=== PATIENT | female | born 1995 | race Caucasian/White ===

== ENCOUNTER → 2020-09-29 | Outpatient (CLI) | payer OTHER ==
[~2020-09-29] MED LIST: FERSU300; IBUP800 PO; OXYC5 PO; PRENATAL TABLE1 EAC2
[2020-10-03 15:10] LABS: HPV 16 Negative (Negative); HPV 18 Negative (Negative); HPV OTHER HR TYPES Negative (Negative)
== END | disposition home or self-care (01) ==
LOC: LAB 14:07 → LAB SHORT 14:07
PROVIDERS: Obstetrics & Gynecology
DX: Z01.419 Encounter for gynecological examination (general) (routine) without abnormal findings (principal)
CPT/HCPCS: 87624; G0123

== ENCOUNTER 2021-04-11 14:45 | Inpatient (IN) | payer BC ==
[~2021-04-11] VITALS: Ht 165.1 cm; Wt 70.0 kg
[2021-04-11] MEDS ORDERED: PRENATAL TABLE1 EAC2 (15:24)
[2021-04-11] MEDS ORDERED: FERSU300 (15:25)
[2021-04-11 15:26] LABS: BASOPHILS ABSOLUTE AUTO 0.01 K/mm3 (0.00-0.23); BASOPHILS PERCENT AUTO 0 % (0-2); EOSINOPHILS ABSOLUTE AUTO 0.09 K/mm3 (0.00-0.68); EOSINOPHILS PERCENT AUTO 1 % (0-6); Hematocrit 32.8 % (33.0-51.0); Hemoglobin 10.6 g/dL (11.5-16.0); IMMATURE GRAN ABSOLUTE AUTO 0.02 K/mm3 (0.00-0.10); IMMATURE GRAN PERCENT AUTO 0 % (0-1); LYMPHOCYTES ABSOLUTE AUTO 1.56 K/mm3 (0.84-5.20); LYMPHOCYTES PERCENT AUTO 19 % (21-46); MONOCYTES ABSOLUTE AUTO 0.77 K/mm3 (0.16-1.47); MONOCYTES PERCENT AUTO 9 % (4-13); Mean Corpuscular HGB 25.3 pg (26.0-34.0); Mean Corpuscular HGB Conc 32.3 g/dL (31.5-36.5); Mean Corpuscular Volume 78 fL (80-100); Mean Platelet Volume 11.1 fL (9.1-12.4); NEUTROPHILS ABSOLUTE AUTO 5.89 K/mm3 (1.96-9.15); NEUTROPHILS PERCENT AUTO 71 % (41-73); Platelet Count 313 K/mm3 (150-400); RDW Coefficient Variation 13.9 % (11.7-14.2); RDW Standard Deviation 39.1 fL (35.1-46.3); Red Blood Cell Count 4.19 M/mm3 (3.80-5.20); White Blood Cell Count 8.34 K/mm3 (4.00-11.30)
--- NOTE | 2021-04-12 15:29 | NUR ---
04/12/21 1529 Monica Muir 1507 PT ARRIVE TO [facility] OR WITH MARSH CATHETER INTACT DRAINIG CLEAR YELLOW URINE
--- NOTE | 2021-04-12 18:00 | NUR ---
JEFFREY POS WELL. PAIN RX GIVEN. BF NB. BONDING WELL.
--- NOTE | 2021-04-12 18:43 | NUR ---
PT DECLINES FUNDAL CHECK AT THIS TIME. R/T PAIN. PAIN RX GIVEN. HEAT PAD GIVEN. VS AND BLEEDING WNL. PT JEFFREY CRACKERS, JUICE, AND WATER WELL. VISITING WITH FAMILY ONLINE.
[2021-04-13 05:32] LABS: Hematocrit 30.9 % (33.0-51.0); Hemoglobin 9.9 g/dL (11.5-16.0); Mean Corpuscular HGB 25.2 pg (26.0-34.0); Mean Corpuscular Volume 79 fL (80-100); Mean Platelet Volume 10.5 fL (9.1-12.4); Platelet Count 274 K/mm3 (150-400); RDW Standard Deviation 39.8 fL (35.1-46.3); Red Blood Cell Count 3.93 M/mm3 (3.80-5.20); White Blood Cell Count 13.48 K/mm3 (4.00-11.30)
[2021-04-14] MEDS ORDERED: IBUP800 PO (11:52)
[2021-04-14] MEDS ORDERED: OXYC5 PO (11:53)
--- NOTE | 2021-04-14 12:45 | NUR ---
PT'S VITAL SIGNS STABLE THIS MORNING. NO FEVER PRESENT. DISCHARGE TEACHING, WRITTEN AND VERBAL, GIVEN TO PT AND , HANNAH. ANSWERED ALL QUESTIONS AND CONCERNS. FOLLOW UP APPOINTMENT SCHEDULED. IV DISCONTINUED. ALL PERSONAL BELONGINGS RETURNED. PRESCRIPTIONS GIVEN TO PT'S TO GET FILLED. PT IS READY FOR DISCHARGE.
== END 2021-04-14 15:10 | disposition home or self-care (01) | DRG 787 ==
LOC: BC 14:45 → OBS 14:45 → BC 14:58
PROVIDERS: ADMIT Obstetrics & Gynecology
PROC: 10D00Z1 Extraction of Products of Conception, Low, Open Approach (ICD-10-PCS; principal; 2021-04-12 15:00)
DX: O76 Abnormality in fetal heart rate and rhythm complicating labor and delivery (principal); Q79.61 Classical Ehlers-Danlos syndrome; O36.5930 Maternal care for other known or suspected poor fetal growth, third trimester, not applicable or unspecified; Z3A.40 40 weeks gestation of pregnancy; Z37.0 Single live birth; O99.891 Other specified diseases and conditions complicating pregnancy; Z86.16 Personal history of COVID-19; O64.8XX0 Obstructed labor due to other malposition and malpresentation, not applicable or unspecified
CPT/HCPCS: 36415; 51702; 85025; 85027; 86850; 86900; 86901; A9270; C9113; J0456; J0690; J1100; J1200; J1885; J2001; J2370; J2405; J2590; J2765; J3010; J7050; J7120

== ENCOUNTER → 2022-07-11 | Outpatient (CLI) | payer BC ==
[~2022-07-11] MED LIST changes: +BUSP5 PO; +LOPE2C PO; +ONDA4 PO
[2022-07-11 12:52] LABS: Source, Urine Clean Catch
[2022-07-11 14:00] LABS: Bacteria Many /hpf; Mucus Heavy (0-Heavy); Red Blood Cells, Urine 0-2 /hpf (0-2); Squamous Epithelial Cells Many /hpf (Few)
[2022-07-11 14:01] LABS: Amorphous Light (0-Heavy)
== END | disposition home or self-care (01) ==
LOC: LAB SHORT 09:36 → LAB 09:36
PROVIDERS: Obstetrics & Gynecology
DX: Z34.81 Encounter for supervision of other normal pregnancy, first trimester (principal)
CPT/HCPCS: 81015; 87086

== ENCOUNTER → 2022-08-01 | Outpatient (CLI) | payer BC ==
[2022-08-03 01:10] LABS: CHLAMYDIA TRACHOMATIS, NAA Negative (Negative)
== END ==
LOC: LAB 14:25 → LAB SHORT 14:25
PROVIDERS: Obstetrics & Gynecology
DX: Z11.3 Encounter for screening for infections with a predominantly sexual mode of transmission (principal)
CPT/HCPCS: 87491; 87591

== ENCOUNTER 2022-08-21 18:46 | Emergency (ER) | payer BC ==
[~2022-08-21] VITALS: Ht 165.1 cm; Wt 59.0 kg
[2022-08-21 19:35] LABS: BASOPHILS ABSOLUTE AUTO 0.02 K/mm3 (0.00-0.23); BASOPHILS PERCENT AUTO 0 % (0-2); EOSINOPHILS ABSOLUTE AUTO 0.08 K/mm3 (0.00-0.68); EOSINOPHILS PERCENT AUTO 1 % (0-6); Hematocrit 35.9 % (33.0-51.0); Hemoglobin 12.4 g/dL (11.5-16.0); IMMATURE GRAN ABSOLUTE AUTO 0.03 K/mm3 (0.00-0.10); IMMATURE GRAN PERCENT AUTO 0 % (0-1); LYMPHOCYTES ABSOLUTE AUTO 1.81 K/mm3 (0.84-5.20); LYMPHOCYTES PERCENT AUTO 21 % (21-46); MONOCYTES ABSOLUTE AUTO 0.51 K/mm3 (0.16-1.47); MONOCYTES PERCENT AUTO 6 % (4-13); Mean Corpuscular HGB 28.5 pg (26.0-34.0); Mean Corpuscular HGB Conc 34.5 g/dL (31.5-36.5); Mean Corpuscular Volume 83 fL (80-100); Mean Platelet Volume 9.1 fL (9.1-12.4); NEUTROPHILS ABSOLUTE AUTO 6.38 K/mm3 (1.96-9.15); NEUTROPHILS PERCENT AUTO 72 % (41-73); Platelet Count 303 K/mm3 (150-400); RDW Coefficient Variation 13.3 % (11.7-14.2); RDW Standard Deviation 40.2 fL (35.1-46.3); Red Blood Cell Count 4.35 M/mm3 (3.80-5.20); White Blood Cell Count 8.83 K/mm3 (4.00-11.30)
[2022-08-21 19:58] LABS: Albumin, Blood 3.2 g/dL (3.4-5.0); Albumin/Globulin Ratio 0.9 (0.8-1.8); Bilirubin, Total 0.2 mg/dL (0.1-1.0); Bun/Creatinine Ratio 15.7 (12.0-20.0); Calcium, Blood 8.7 mg/dL (8.5-10.1); Creatinine, Blood 0.45 mg/dL (0.40-1.00); Globulin, Blood 3.6 g/dL (2.2-4.0); Potassium, Blood 3.6 mmol/L (3.5-5.5); Total Protein, Blood 6.8 g/dL (6.4-8.2)
== END 2022-08-21 21:37 | disposition home or self-care (01) ==
LOC: ER 18:46
PROVIDERS: Emergency Medicine
DX: O21.1 Hyperemesis gravidarum with metabolic disturbance (principal); Z3A.15 15 weeks gestation of pregnancy; O26.892 Other specified pregnancy related conditions, second trimester; R51.9 Headache, unspecified; Z91.018 Allergy to other foods; Z79.899 Other long term (current) drug therapy
CPT/HCPCS: 36415; 80053; 85025; A9270; J1200; J2765; J7030